=== PATIENT | male | born 1960 | race Caucasian/White ===

== ENCOUNTER 2023-09-28 06:26 | Day surgery (SDC) | payer OTHER, SELFPAY ==
[2023-09-28] VITALS (11 sets, daily range): BP systolic 128–146; BP diastolic 75–97; PULSE 76–83; RESP 14–18; TEMP 36.5; O2SAT 97–100
[2023-09-28] MEDS: CEFAZOLIN 2 GM INJ IVP (06:50)
[2023-09-28] MEDS: BUPIVACAINE 0.5% 30 ML INJECTION (07:23)
[2023-09-28] MEDS: lidocaine HCL 2 % MULTIDOSE 20 ML VIAL INJECTION (07:53)
--- NOTE | 2023-09-28 08:00 | PM.ORPRC ---
Procedure Note Date of procedure: 09/28/23 Procedure: Preop diagnosis: Bilateral thumb stenosing tenosynovitis Postop diagnosis: Bilateral thumb stenosing tenosynovitis Procedure: Bilateral thumb A1 patricia release Anesthesia: Local Surgeon: Shemar Walters MD commissary assistant: Tita Mckoy PA-C, VIRA Craven EBL: 0 mL Complications: None Specimens: None Drains: None Preoperative antibiotics: None Indications: The patient has a history of bilateral thumb painful catching and locking. Despite appropriate non operative management including flexor tendon sheath corticosteroid injections they continue to have symptoms. Operative intervention was recommended. The risks, benefits alternatives and expected outcomes were discussed in detail. These included but were not limited to: Infection, bleeding, injury to blood vessel or nerve, venous thromboembolism. All questions were answered to their satisfaction. The patient was placed supine on the operating room table. Local anesthesia was established with 0.5% Marcaine without epinephrine and 2% lidocaine without epinephrine. Both hands were prepped and draped in usual sterile fashion. The right upper extremity was elevated the forearm pneumatic tourniquet was inflated to 250 mm of mercury. A transverse incision was made in the MP flexion crease of the thumb. Subcutaneous dissection was taken through the palmar fascia to the flexor tendons with the tenotomy scissors. The A1 patricia was released with the 15 blade and the tenotomy scissors. The edges of the A1 patricia were sharply resected. Active flexion and extension of the thumb shows no catching or locking, no bowstringing of the flexor tendons. Attention then turned to the left hand. The upper extremity was elevated, the forearm pneumatic tourniquet was inflated to 250 mm of mercury. A transverse incision was made in the MP flexion crease of the thumb. Subcutaneous dissection was taken through the palmar fascia to the flexor tendons with the tenotomy scissors. The A1 patricia was released with the 15 blade and the tenotomy scissors. The edges of the A1 patricia were sharply resected. Active flexion and extension of the thumb shows no catching or locking, no bowstringing of the flexor tendons. The wounds were closed with interrupted nylon sutures. A dry dressing was applied the tourniquet was released. Sponge and needle counts were correct x 2. The patient tolerated the procedure well, there were no apparent complications. They were sent to same day surgery in satisfactory condition. Plan: Use of the hands as tolerates. Discontinue the intraoperative dressing on postoperative day 3 and may get the wound wet as tolerates. Follow up in the office in 2 weeks for a wound check and suture removal.
== END 2023-09-28 08:23 | disposition home or self-care (01) ==
PROVIDERS: PCP Physician Assistant; Visit Provider Orthopaedic Surgery
PROC: (CPT 26055; principal; 2023-09-28 07:30)
DX: M65.312 Trigger thumb, left thumb (principal); M65.311 Trigger thumb, right thumb; M65.842 Other synovitis and tenosynovitis, left hand; M65.841 Other synovitis and tenosynovitis, right hand
CPT/HCPCS: 26055 ×2; 82962; J0665; J0690

== ENCOUNTER 2025-01-21 12:56 | Outpatient (CLI) | payer OTHER, SELFPAY | END 2025-01-21 12:57 | disposition home or self-care (01) | LOC: INJ CL 12:57 | PROVIDERS: PCP Physician Assistant; Visit Provider Family Medicine | DX: M54.16 Radiculopathy, lumbar region (principal) | CPT/HCPCS: 64483; J1100; Q9966 ==